=== PATIENT | female | born 1990 | race Caucasian/White ===

== ENCOUNTER 2017-01-17 16:13 | Emergency (ER) | payer OTHER ==
[2017-01-17 20:12] LABS: BASOPHIL % 0.4 % (0-2); PLATELET COUNT 296 x10^3mcL (130-400); RED CELL DISTRIBUTION WIDTH 13.2 % (11.5-14.5)
[2017-01-17 20:21] LABS: CALCIUM 8.8 mg/dL (8.5-10.1); CARBON DIOXIDE 30.3 mmol/L (21-32); CHLORIDE SERUM 106 mmol/L (98-107); CREATININE SERUM 0.8 mg/dL (0.6-1.0); GFR1 > 60 mL/min; GLUCOSE SERUM 98 mg/dL (74-106); POTASSIUM SERUM 3.8 mmol/L (3.5-5.1); SODIUM SERUM 140 mmol/L (136-145)
[2017-01-17 20:34] LABS: ALBUMIN 3.4 g/dL (3.4-5.0); ALKALINE PHOSPHATASE 70 U/L (46-116); ALT/SGPT 33 U/L (14-59); AST/SGOT 21 U/L (15-37); BILIRUBIN TOTAL 0.19 mg/dL (0.20-1.00); T4(THYROXINE) 15.3 ug/dL (4.7-13.3); TOTAL PROTEIN, SERUM 7.6 g/dL (6.4-8.2)
[2017-01-17 20:46] VITALS: BP 116/58
== END 2017-01-17 20:46 | disposition home or self-care (01) ==
LOC: ED 16:13
PROVIDERS: Emergency Medicine
DX: N93.8 Other specified abnormal uterine and vaginal bleeding (principal)
CPT/HCPCS: J7030